=== PATIENT | male | born 1995 | race Caucasian/White ===

== ENCOUNTER 2017-11-22 21:19 | Emergency (ER) | payer OTHER ==
[~2017-11-22] VITALS: Ht 172.7 cm; Wt 97.5 kg
[2017-11-22 22:44] VITALS: BP 132/99
== END 2017-11-22 22:36 | disposition home or self-care (01) ==
LOC: ED 21:19
DX: H61.21 Impacted cerumen, right ear (principal); F17.200 Nicotine dependence, unspecified, uncomplicated

== ENCOUNTER 2018-05-11 14:03 | Emergency (ER) | payer OTHER ==
[~2018-05-11] VITALS: Ht 172.7 cm; Wt 101.6 kg
[2018-05-11 14:05] VITALS: BP 130/60
[2018-05-11] MEDS ORDERED: RISPERIDONE1 MG PO (14:06)
[2018-05-11] MEDS ORDERED: SEPTDS PO (15:49)
[2018-05-11] MEDS ORDERED: CEPHALEXIN500 M1 PO (15:49)
== END 2018-05-11 16:13 | disposition home or self-care (01) ==
LOC: ED 14:03
DX: L02.213 Cutaneous abscess of chest wall (principal)

== ENCOUNTER 2018-11-07 21:33 | Emergency (ER) | payer OTHER ==
[~2018-11-07] VITALS: Ht 172.7 cm; Wt 101.6 kg
[~2018-11-07 21:33] MED LIST: CEPHALEXIN500 M1 PO; RISPERIDONE1 MG PO; SEPTDS PO
[2018-11-07 21:35] VITALS: BP 124/70
[2019-01-13] MEDS ORDERED: ZOLOFT100 MG PO (15:55)
[2019-01-13] MEDS ORDERED: TRAZODONE100 MG PO (15:56)
[2019-01-13] MEDS ORDERED: IBUPROFEN600 MG PO (20:11)
[2019-01-13] MEDS ORDERED: NORCO 5-325 TA1 EACH PO (20:11)
[2019-01-13] MEDS ORDERED: AUGMENTIN 875875 MG PO (20:20)
== END 2018-11-07 22:10 | disposition home or self-care (01) ==
LOC: ED 21:33
DX: S93.492A Sprain of other ligament of left ankle, initial encounter (principal); X50.1XXA Overexertion from prolonged static or awkward postures, initial encounter; Y93.39 Activity, other involving climbing, rappelling and jumping off; Y92.89 Other specified places as the place of occurrence of the external cause; Y99.9 Unspecified external cause status

== ENCOUNTER 2019-05-16 22:36 | Emergency (ER) | payer OTHER ==
[~2019-05-16] VITALS: Ht 172.7 cm; Wt 84.8 kg
[~2019-05-16 22:36] MED LIST changes: +AUGMENTIN 875875 MG PO; +IBUPROFEN600 MG PO; +NORCO 5-325 TA1 EACH PO; +TRAZODONE100 MG PO; +ZOLOFT100 MG PO
[2019-05-16 22:38] VITALS: BP 133/42
[2019-05-16] MEDS ORDERED: IBU600 M1 PO ×3 (22:51→22:59)
== END 2019-05-17 01:00 | disposition home or self-care (01) ==
LOC: ED 22:36
DX: M54.6 Pain in thoracic spine (principal); M54.5 Low back pain; F17.210 Nicotine dependence, cigarettes, uncomplicated; Z79.2 Long term (current) use of antibiotics; Z79.899 Other long term (current) drug therapy; X50.0XXA Overexertion from strenuous movement or load, initial encounter; Y93.89 Activity, other specified; Y92.69 Other specified industrial and construction area as the place of occurrence of the external cause; Y99.8 Other external cause status

== ENCOUNTER → 2020-03-20 | Outpatient (CLI) | payer OTHER ==
[~2020-03-20] MED LIST changes: +IBU600 M1 PO
== END | disposition home or self-care (01) ==
LOC: RAD 12:32
DX: M43.06 Spondylolysis, lumbar region (principal); M54.41 Lumbago with sciatica, right side; M54.6 Pain in thoracic spine

== ENCOUNTER 2021-04-28 19:09 | Emergency (ER) | payer OTHER ==
[~2021-04-28] VITALS: Ht 172.7 cm; Wt 99.8 kg
[2021-04-28 19:17] VITALS: BP 131/65
[2021-04-28 19:50] LABS: BASO # 0.1 10*3/uL (0.0-0.1); BASO % 0.7 % (0.0-1.0); EOS # 0.1 10*3/uL (0.0-0.4); EOS % 0.9 % (1.0-4.0); HEMATOCRIT 44.1 % (42.0-52.0); LYMPH # 1.9 10*3/uL (1.3-4.4); LYMPH % 22.2 % (27.0-41.0); MEAN CELL VOLUME 84.2 fl (80.0-94.0); MEAN CORPUSCULAR HGB 28.6 pg (27.0-31.0); MEAN PLATELET VOLUME 11.2 fl (9.6-12.3); MONO # 0.5 10*3/uL (0.1-1.0); MONO % 6.3 % (3.0-9.0); NEUT # 5.9 10*3/uL (2.3-7.9); NEUT % 69.7 % (47.0-73.0); PLATELET COUNT AUTOMATED 291 10*3/uL (130-400); RED BLOOD COUNT 5.24 10*6/uL (4.50-5.90); RED CELL DISTRI WIDTH 12.7 % (0-14.5); WHITE BLOOD COUNT 8.5 10*3/uL (4.8-10.8)
[2021-04-28 20:07] LABS: ALBUMIN 4.9 gm/dl (3.1-4.5); ALKALINE PHOSPHATASE 86 U/L (45-117); BUN 12 mg/dl (7-24); CHLORIDE 106 mmol/L (98-107); CREATININE 1.09 mg/dL (0.70-1.30); POTASSIUM 3.8 mmol/L (3.5-5.1); SGOT/AST 41 IU/L (3-35); SGPT/ALT 77 U/L (12-78); SODIUM 139 mmol/L (136-145); TOTAL PROTEIN 8.9 gm/dL (6.4-8.2)
[2021-04-28 20:10] LABS: ETHYL ALCOHOL < 3.0 mg/dl (<3)
[2021-04-28 20:54] LABS: BILIRUBIN Negative (Negative); BLOOD Negative (Negative); CLARITY Cloudy (Clear); COLOR Yellow (Yellow); GLUCOSE Negative (Negative); KETONE 1+ (Negative); LEUKO ESTERASE Negative (Negative); NITRITE Negative (Negative); PH 5.5 (4.5-8.0); SPECIFIC GRAVITY 1.025 (1.001-1.030)
[2021-04-28 20:58] LABS: ACETAMINOPHEN (TYLENOL) < 2.0 ug/ml (10-30)
[2021-04-28 21:02] LABS: URINE AMPHETAMINES < 1000 (1000ng/ml); URINE BARBITURATES < 200 (200ng/ml); URINE BENZODIAZEPINES < 200 (200ng/ml); URINE CANNABINOIDS (THC) > 50 (50ng/ml); URINE COCAINE < 300 (300ng/ml); URINE METHADONE < 300 (300ng/ml); URINE OPIATES < 300 (300ng/ml)
[2021-04-28 21:03] LABS: URINE PHENCYCLIDINE < 25 (25ng/ml)
[2021-04-28 21:08] LABS: BACTERIA TRACE; EPITHELIAL CELLS 0-2; MUCOUS 1+; RBC 0-2 rbc/hpf (0-2); WBC 0-2 wbc/hpf (0-5)
== END 2021-04-29 10:30 ==
LOC: ED 19:09
PROVIDERS: Internal Medicine
DX: F32.9 Major depressive disorder, single episode, unspecified (principal); Z20.822 Contact with and (suspected) exposure to COVID-19; F17.210 Nicotine dependence, cigarettes, uncomplicated; Z79.899 Other long term (current) drug therapy

== ENCOUNTER 2022-06-08 21:43 | Emergency (ER) | payer OTHER ==
[~2022-06-08] VITALS: Ht 172.7 cm; Wt 74.8 kg
[2022-06-09 00:08] LABS: BASO # 0.1 10*3/uL (0.0-0.1); BASO % 0.6 % (0.0-1.0); EOS # 0.1 10*3/uL (0.0-0.4); EOS % 0.9 % (1.0-4.0); HEMATOCRIT 38.8 % (42.0-52.0); LYMPH # 2.5 10*3/uL (1.3-4.4); LYMPH % 32.5 % (27.0-41.0); MEAN CELL VOLUME 84.7 fl (80.0-94.0); MEAN CORPUSCULAR HGB 29.3 pg (27.0-31.0); MEAN CORPUSCULAR HGB CONC 34.5 g/dl (33.0-37.0); MEAN PLATELET VOLUME 11.8 fl (9.6-12.3); MONO # 0.6 10*3/uL (0.1-1.0); MONO % 7.6 % (3.0-9.0); NEUT # 4.5 10*3/uL (2.3-7.9); NEUT % 58.3 % (47.0-73.0); PLATELET COUNT AUTOMATED 233 10*3/uL (130-400); RED BLOOD COUNT 4.58 10*6/uL (4.50-5.90); RED CELL DISTRI WIDTH 12.9 % (0-14.5); WHITE BLOOD COUNT 7.7 10*3/uL (4.8-10.8)
[2022-06-09 00:22] LABS: ALKALINE PHOSPHATASE 66 U/L (45-117); BUN 14 mg/dl (7-24); CHLORIDE 108 mmol/L (98-107); CREATININE 0.94 mg/dL (0.70-1.30); LIPASE 179 U/L (73-393); POTASSIUM 3.3 mmol/L (3.5-5.1); SGOT/AST 15 IU/L (3-35); SGPT/ALT 19 U/L (12-78); SODIUM 142 mmol/L (136-145); TOTAL PROTEIN 7.7 gm/dL (6.4-8.2)
[2022-06-09] MEDS ORDERED: PROTONIX40 MG PO (02:05)
[2022-06-09] MEDS ORDERED: HYDROCODONE-AC1 EAC1 PO (02:05)
[2022-06-09 02:09] VITALS: BP 131/88
== END 2022-06-09 02:19 | disposition home or self-care (01) ==
LOC: ED 21:43
PROVIDERS: Emergency Medicine
DX: R07.89 Other chest pain (principal); R10.12 Left upper quadrant pain; F17.210 Nicotine dependence, cigarettes, uncomplicated; Z79.899 Other long term (current) drug therapy; Z98.890 Other specified postprocedural states

== ENCOUNTER 2022-07-07 08:21 | Emergency (ER) | payer OTHER ==
[~2022-07-07] VITALS: Wt 72.1 kg
[~2022-07-07 08:21] MED LIST changes: +HYDROCODONE-AC1 EAC1 PO; +PROTONIX40 MG PO
[2022-07-07 08:34] VITALS: BP 112/50
== END 2022-07-07 10:52 | disposition home or self-care (01) ==
LOC: ED 08:21
DX: S80.02XA Contusion of left knee, initial encounter (principal); Z79.899 Other long term (current) drug therapy; Z90.49 Acquired absence of other specified parts of digestive tract; F17.210 Nicotine dependence, cigarettes, uncomplicated; V29.99XA Rider (driver) (passenger) of other motorcycle injured in unspecified traffic accident, initial encounter; Y93.89 Activity, other specified; Y92.89 Other specified places as the place of occurrence of the external cause; Y99.8 Other external cause status

== ENCOUNTER 2022-08-11 07:54 | Emergency (ER) | payer OTHER ==
[~2022-08-11] VITALS: Wt 74.4 kg
[2022-08-11 08:02] VITALS: BP 121/70
[2022-08-11] MEDS ORDERED: Ondansetron4 MG PO (08:30)
== END 2022-08-11 10:16 | disposition home or self-care (01) ==
LOC: ED 07:54
DX: J06.9 Acute upper respiratory infection, unspecified (principal); Z98.890 Other specified postprocedural states; F12.90 Cannabis use, unspecified, uncomplicated; F17.210 Nicotine dependence, cigarettes, uncomplicated; Z20.822 Contact with and (suspected) exposure to COVID-19

== ENCOUNTER 2022-12-06 08:00 | Emergency (ER) | payer OTHER ==
[~2022-12-06] VITALS: Wt 70.3 kg
[~2022-12-06 08:00] MED LIST changes: +Ondansetron4 MG PO
[2022-12-06 08:09] VITALS: BP 102/67
[2022-12-06 08:44] LABS: BASO # 0.1 10*3/uL (0.0-0.1); BASO % 0.8 % (0.0-1.0); EOS # 0.2 10*3/uL (0.0-0.4); EOS % 2.3 % (1.0-4.0); HEMATOCRIT 38.2 % (42.0-52.0); LYMPH # 1.8 10*3/uL (1.3-4.4); LYMPH % 26.9 % (27.0-41.0); MEAN CELL VOLUME 86.2 fl (80.0-94.0); MEAN CORPUSCULAR HGB 29.1 pg (27.0-31.0); MEAN CORPUSCULAR HGB CONC 33.8 g/dl (33.0-37.0); MEAN PLATELET VOLUME 11.8 fl (9.6-12.3); MONO # 0.4 10*3/uL (0.1-1.0); MONO % 5.6 % (3.0-9.0); NEUT # 4.3 10*3/uL (2.3-7.9); NEUT % 64.2 % (47.0-73.0); PLATELET COUNT AUTOMATED 205 10*3/uL (130-400); RED BLOOD COUNT 4.43 10*6/uL (4.50-5.90); RED CELL DISTRI WIDTH 12.9 % (0-14.5); WHITE BLOOD COUNT 6.6 10*3/uL (4.8-10.8)
[2022-12-06 09:00] LABS: ALKALINE PHOSPHATASE 67 U/L (46-116); BUN 13 mg/dl (9-23); CHLORIDE 105 mmol/L (98-107); LIPASE 33 U/L (12-53); POTASSIUM 3.5 mmol/L (3.4-5.1); SGPT/ALT 13 U/L (10-49); TOTAL PROTEIN 7.1 gm/dL (6.0-8.0)
[2022-12-06] MEDS ORDERED: ONDANSETRON4 MG SL (09:59)
== END 2022-12-06 10:04 | disposition home or self-care (01) ==
LOC: ED 08:00
PROVIDERS: Emergency Medicine
DX: K52.9 Noninfective gastroenteritis and colitis, unspecified (principal); F41.9 Anxiety disorder, unspecified; F32.A Depression, unspecified; M19.90 Unspecified osteoarthritis, unspecified site; Z90.49 Acquired absence of other specified parts of digestive tract; Z98.890 Other specified postprocedural states; F12.90 Cannabis use, unspecified, uncomplicated; F17.210 Nicotine dependence, cigarettes, uncomplicated

== ENCOUNTER → 2023-03-09 | Outpatient (CLI) | payer OTHER ==
[~2023-03-09] MED LIST changes: +ONDANSETRON4 MG SL
[2023-03-09 16:45] LABS: BASO # 0.1 10*3/uL (0.0-0.1); BASO % 0.7 % (0.0-1.0); BILIRUBIN Negative (Negative); BLOOD Negative (Negative); CLARITY Clear (Clear); COLOR Yellow (Yellow); EOS % 0.5 % (1.0-4.0); GLUCOSE Negative (Negative); HEMATOCRIT 41.3 % (42.0-52.0); KETONE 1+ (Negative); LEUKO ESTERASE Negative (Negative); LYMPH # 1.8 10*3/uL (1.3-4.4); LYMPH % 21.1 % (27.0-41.0); MEAN CELL VOLUME 82.6 fl (80.0-94.0); MEAN CORPUSCULAR HGB 29.2 pg (27.0-31.0); MEAN CORPUSCULAR HGB CONC 35.4 g/dl (33.0-37.0); MEAN PLATELET VOLUME 10.9 fl (9.6-12.3); MONO # 0.5 10*3/uL (0.1-1.0); MONO % 6.3 % (3.0-9.0); NEUT % 71.2 % (47.0-73.0); NITRITE Negative (Negative); PLATELET COUNT AUTOMATED 291 10*3/uL (130-400); RED CELL DISTRI WIDTH 12.7 % (0-14.5); RETICULOCYTE % 0.75 % (0.50-2.50); SPECIFIC GRAVITY >= 1.030 (1.001-1.030); WHITE BLOOD COUNT 8.5 10*3/uL (4.8-10.8)
[2023-03-09 17:10] LABS: BACTERIA 1+; MUCOUS 1+
[2023-03-09 17:17] LABS: ALKALINE PHOSPHATASE 87 U/L (46-116); BUN 15 mg/dl (9-23); CHLORIDE 102 mmol/L (98-107); CHOLESTEROL 124 mg/dL (<200); GAMMA GLUTAMYL TRANSPEPTIDASE 23 U/L (0-73); LDL CHOLESTEROL 54 mg/dL (9-159); POTASSIUM 3.7 mmol/L (3.4-5.1); SGPT/ALT 17 U/L (10-49); T3 UPTAKE 23.7 % (22.4-36.7); THYROXINE (T4) TOTAL 7.7 ug/dl (4.5-10.9); TOTAL PROTEIN 8.7 gm/dL (6.0-8.0); TRIGLYCERIDES 78 mg/dl (<150); URIC ACID 7.3 mg/dL (3.7-9.2)
[2023-03-09 17:32] LABS: VITAMIN D, 25-HYDROXY 29.8 ng/mL (30-100)
[2023-03-10 15:07] LABS: ANTI-DSDNA ANTIBODIES <1 IU/mL (0-9)
== END | disposition home or self-care (01) ==
LOC: LAB 15:58
PROVIDERS: ATTEND Family Medicine
DX: J98.4 Other disorders of lung (principal); E78.5 Hyperlipidemia, unspecified; E55.9 Vitamin D deficiency, unspecified; R79.89 Other specified abnormal findings of blood chemistry; R53.83 Other fatigue; R74.8 Abnormal levels of other serum enzymes